=== PATIENT | female | born 1950 | race Caucasian/White ===

== ENCOUNTER → 2017-06-06 | Outpatient (CLI) | payer OTHER ==
[~2017-06-06] MED LIST: ACETAMINOPHEN325 M1 PO; ADVAIR 250-501 EACH INH; ATIVAN1 MG PO; CISPLATIN IV; CRESTOR5 MG PO; DEXAMETHASONE4 MG PO; FLONASE 0.05%50 MCG NASAL; HYDROCODONE-AC120 ML PO; OMEPRAZOLE 20 M20 M1 PO; OMEPRAZOLE 20 M20 MG PO; ONDANSETRON HCL4 M3 PO; SYNTHROID112 MCG PO; [UNRECOGNIZED DRUG - OTHER] IV
[2017-06-06 09:01] LABS: CREATININE 0.8 mg/dL (0.6-1.0)
== END ==
LOC: MRI 08:27
PROVIDERS: Internal Medicine Pulmonary Disease
DX: I67.82 Cerebral ischemia (principal); C34.90 Malignant neoplasm of unspecified part of unspecified bronchus or lung; J70.0 Acute pulmonary manifestations due to radiation; D3A.00 Benign carcinoid tumor of unspecified site; R41.3 Other amnesia

== ENCOUNTER → 2017-06-12 | Outpatient (CLI) | payer OTHER | LOC: PET 11:57 | DX: C34.90 Malignant neoplasm of unspecified part of unspecified bronchus or lung (principal); J70.0 Acute pulmonary manifestations due to radiation; D3A.00 Benign carcinoid tumor of unspecified site ==

== ENCOUNTER → 2018-10-21 | Outpatient (CLI) | payer OTHER | LOC: NUC 11:32 | DX: M85.89 Other specified disorders of bone density and structure, multiple sites (principal); M81.0 Age-related osteoporosis without current pathological fracture; Z78.0 Asymptomatic menopausal state ==

== ENCOUNTER 2019-01-19 14:57 | Inpatient (IN) | payer OTHER ==
[~2019-01-19] VITALS: Ht 167.6 cm; Wt 90.3 kg
--- NOTE | ~2019-01-19 | HC ---
[facility] [place] [address] CONSULTATION Name: RENNY WALKER Room #: 350-P [facility] IN ..#: [id number] Admission: 01/19/19 ������������������ Attend Phys: Kerwin Dunham MD Discharge: 01/20/19 ������������������ Date of : 50 Report #: [id number] THIS REPORT FOR: //name// CC: Kerwin Ross DATE OF SERVICE: 01/20/2019 HISTORY OF PRESENT ILLNESS: This is a 68-year-old female patient who was evaluated by me for leg weakness. The patient was discussed with nurse practitioner who admitted this patient yesterday. This patient has presented with falls. Her history is quite poor. She does indicate that she had a history of lung carcinoma. She said her legs are becoming weak. The duration is not clear. Sometimes she says that it is because of chemotherapy or radiation and it is going on for a long time. On other time she stays it is going on for a few days and she indicated that it may have become worse the last few days. She was noticed to be weak on the left side by Emergency Room, but to me she is weak on both sides and sometime looks more weak on the right side than the left side. She has fracture on the left side. REVIEW OF SYSTEMS: Indicate that this patient has a history of lung carcinoma with metastasis to the lymph nodes. She has a history of breast implant and hysterectomy. She has a history of hypothyroid. Her 14-point review of system was carried out and this was a relevant 14-point review of system. PAST MEDICAL HISTORY: Positive for lung cancer. FAMILY HISTORY: Negative for any neuropathy. SOCIAL HISTORY: She does drink alcohol and used to smoke. PHYSICAL EXAMINATION: Indicate she is alert. She is responsive. She is oriented, but looks like she forgets things other easily. I do not know what her baseline is. Cranial nerve examination 2-12 looks unremarkable. She is weak in both lower extremities; in fact, she appeared to be weaker in the right lower extremity than the left lower extremity to me. Her position sense looks intact. Reflexes are diminished and I could not elicit in the lower extremities. There is no meningeal sign. There is no carotid bruit in this patient. Blood pressure is 150/73, respirations 19, pulse 65, temperature is 98.2. MRI of the brain shows chronic changes, but no acute changes. 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 IMPRESSION AND PLAN: It is not clear what the patient's symptoms are coming from. 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 was not there and she tried to call him, but history is not clear in that regard. She thinks this may be going on for some time. If she is worse in the last few days, then the spinal cord lesions may be contributing to her symptom. In any case, that needs to be addressed. For that, we need a neurosurgical evaluation to see how much that is contributing to her symptom and further management of that. I asked the admitting physician to get her transferred to [facility] , that is where the patient wants to go and let her get evaluated by Neurosurgery first and then she may need further evaluation including EMG, which we do not have in this hospital. More than 50 minutes of time was spent taking care of this patient and majority of that time was spent counseling and coordinating the patient's care. ��������������������������������������������� ���������������������������������������� By: ��������������������������������������������� 1641 0110 Nawaf Rodriguez MD /nt
[2019-01-19 15:11] VITALS: BP 118/82
--- NOTE | 2019-01-19 16:00 | NUR ---
ASSISTED PT ONTO BEDPAN. PT TOLERATED OKAY.
[2019-01-19 16:33] LABS: HEMATOCRIT 37.9 % (37.0-47.0); MCH 33.4 pg (26.0-34.0); MCHC 34.4 g/dL (28.0-37.0); MCV 97.2 fL (80.0-100.0); PLATELET COUNT 191 thou/uL (150-400); RDW 13.5 % (10.5-14.5); WBC 7.9 thou/uL (4.0-11.0)
[2019-01-19 16:42] LABS: CALCIUM 9.2 mg/dL (8.5-10.1); CREATININE 0.9 mg/dL (0.6-1.0); POTASSIUM 3.7 mmol/L (3.5-5.1)
[2019-01-19 16:48] LABS: ALBUMIN 3.6 g/dL (3.4-5.0); TOTAL BILIRUBIN 0.5 mg/dL (<0.1-1.0)
[2019-01-19 16:57] LABS: ABSOLUTE NEUTROPHILS 6.2 thou/uL (1.4-8.2); PLATELET ESTIMATE NORMAL
[2019-01-19 17:01] LABS: URINE BILIRUBIN NEGATIVE (Negative); URINE BLOOD TRACE (Negative); URINE CLARITY CLEAR; URINE COLOR YELLOW; URINE GLUCOSE-RANDOM* NEGATIVE (Negative); URINE KETONES TRACE (Negative); URINE LEUKOCYTES-REFLEX NEGATIVE (Negative); URINE NITRITE-REFLEX NEGATIVE (Negative); URINE PROTEIN (DIPSTICK) NEGATIVE (Negative); URINE UROBILINOGEN 0.2 E.U./dl (0.2-1.0)
[2019-01-19 19:52] VITALS: BP 145/86
--- NOTE | 2019-01-19 19:57 | NUR ---
PROVIDER AT BEDSIDE CHECKING SPLINT.
[2019-01-19 20:45] VITALS: BP 147/62
[2019-01-20 05:15] VITALS: BP 151/76
--- NOTE | 2019-01-20 05:31 | NUR ---
NEW ADMIT FROM ER VIA EMS. OVER LAST TWO DAYS PT HAS FALLEN 3X IN HER HOME. FALL TODAY RESULTED IN BROKEN FOOT AND A BUMP ON THE REAR OF HER HEAD. CUTS AND SCRAPES TO LEFT KNEE AND LEFT HAND. HUGE BRUISE ON PT'S RIGHT BUTT CHEEK. PT IS LOOKING SOMEWHAT JAUNDICE. ASKED PT IF SHE TANS, SHE REPLIED NO. DURING ADMISSION PT STATES SHE IS A DAILY DRINKER. COULD THE FALLS BE RELATED TO ALCOHOL CONSUMPTION. PT IS A/OX4 BUT HAS SOME DIFFICULTY FINISHING STATEMENTS. PT IS SCHEDULED FOR A NEURO CONSULT AND POSSIBLY A MRI. AT THIS POINT KEEPING PT ON BED REST UNTIL PT CAN SEE HER. ALSO PT ABLE TO HELP ROLL HERSELF WHEN NEEDING TO USE THE BEDPAN.
[2019-01-20 07:25] VITALS: BP 148/78
--- NOTE | 2019-01-20 07:50 | EKG ---
[address] [employer] [place] [address] ELECTROCARDIOGRAM REPORT Name: RENNY WALKER Room #: 350-P ADM IN M.R.#: [id number] ������������������ Admission: 01/19/19 ������������������ Attend Phys: Kerwin Dunham MD Discharge: ������������������ Date of : 50 Report #: [id number] ����������������������������������������������������������������� [id number] THIS REPORT FOR: //name// [facility] ED Test Date: 2019-01-19 Test Time: 16:12:25 Pat Name: RENNY WALKER Department: Room: 350 Gender: F Ruling Machine Set Up Operator: : 1950 Requested By: Todd Triana Order Number: [id number] MD: Jem Saenz Measurements Intervals [place] Rate: 82 P: 77 CT: 147 QRS: 68 QRSD: 90 T: 62 QT: 398 QTc: 465 Interpretive Statements Sinus rhythm Probable left atrial enlargement Anteroseptal infarct, age indeterminate Compared to ECG 07/24/2013 08:49:11 Septal Q waves are more prominent Sinus bradycardia no longer present Electronically Signed On 01-20-2019 7:49:58 [employer] HOUSE ATTENDANT by Jem Saenz [email or web address] ��������������������������������������������� <ELECTRONICALLY SIGNED> ���������������������������������������� By: Jem Saenz MD, [facility] ��������������������������������������������� 01/20/19 0749 1612 1612 Jem Saenz MD, [facility] /EPI
[2019-01-20 07:51] LABS: CALCIUM 8.6 mg/dL (8.5-10.1); CREATININE 0.7 mg/dL (0.6-1.0); POTASSIUM 3.5 mmol/L (3.5-5.1)
[2019-01-20 10:56] LABS: FOLIC ACID 19.8 ng/mL (8.6-58.9); TSH 4.97 uIU/mL (0.358-3.740)
--- NOTE | 2019-01-20 16:08 | NUR ---
ASSSUMED CARE OF PATIENT AT 0715. AAOX3 VERY PLEASANT AND COOPERATIVE. SEEMS SOMEWHAT CONFUSED AT TIMES REORIENTS QUICKLY. GOOD APPETITE. ORTHO SAW HER AND REMOVED SPLINT - WALKING BOOT ORDERED. WENT TO MRI VIA CART. VOIDS PER BED ARIAS AND GOT UP TO COMMODE ONE TIME WITH PIVOT TRANSFER. C/O MILD HEADACHE WHICH WAS TREATED WITH TYLENOL WITH GOOD RELIEF. DR CURRY DISCUSSED RESULTS OF MRI WITH PATIENT AND RECOMMMENED TRANSFER TO FOR NEUROSURGERY. PATIENT HAVING DIFFICULTY REMEMBERING WHY THE NEED TO TRANSFER. RIGHT AC IV SALINE LOCKED. AT BEDSIDE. PATIENT MOVES WELL IN BED AND TRANSFERS WITH SBA USING PIVOT TRANSFER.
[2019-01-20 16:19] VITALS: BP 150/73
--- NOTE | 2019-01-20 16:29 | NUR ---
INITIAL ASSESSMENT: Received consult for discharge planning. AIDEE reviewed chart and spoke with nursing and attending physician. Pt was admitted from home following several falls at home. Pt with fx of fifth metatarsal bone of left foot. Pt with recent hx of left sided leg weakness. 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 Pt did complete radiation and chemotherapy treatment. Pt also with noted hx of daily ETOH consumption. AIDEE contacted by nursing regarding transfer to [facility] per neuro recommendation due to pt having spinal tumor. AIDEE met with pt at bedside. Introduced role of SW. Pt is alert/orientated. Pt able to answer questions appropriately, but had trouble following conversation. Pt reports she lives at home with her . Prior to admission, pt did not use any DME. No hx of HH services. Pt's PCP is Dr. Ross. AIDEE discussed recommendation for transfer to [facility] for neurosurgery services. Pt verbalized understanding and is agreeable with plan to transfer. AIDEE explained process for transfer and need for ambulance transportation from [facility] to [facility]. Pt agreeable. AIDEE offered to contact pt's spouse to provide update. Pt states that she will notify her family. AIDEE contacted [facility] transfer team and spoke with Bel environmental conservation officer. Provided demographic and clinical info. Provided attending physician's contact info. AIDEE faxed requested clinical info (face sheet, H&P, consults, progress notes, vital signs, labs, imaging reports) to [phone] for review. Received fax confirmation. AIDEE left voice message for [facility] radiology to request images to be uploaded to the [facility] to [facility] and also requested a disc to be sent with pt. Awaiting input from [facility] regarding pt's acceptance and bed availability. [facility] Ambulance form and EMTALA form placed on outside of pt's chart for completion when bed is assigned. Chart copy requested. AIDEE is available to assist as needed. [facility] Transfer Center-- [facility]--
--- NOTE | 2019-01-20 17:33 | NUR ---
LEGEND MAKER PROVIDED LEFT WALKING BOOT AND APPLIED TO LEFT LOWER EXTREMITY
--- NOTE | 2019-01-20 19:07 | NUR ---
TRANSFERED TO [facility] VIA BLS [facility]. REPORT CALLED TO DAVY AT . PATIENT AGREEABLE TO TRANSFER. AAOX3, VERY PLEASANT AND COOPERATIVE. SL LEFT ARM. NO COMPLAINTS. LEFT WALKING BOOT INTACT.
== END 2019-01-20 19:11 | disposition short-term general hospital (02) | DRG 563 ==
LOC: ER 14:57 → EROBS 18:52 → 3W 18:52
PROVIDERS: Nurse Practitioner; Nurse Practitioner Family; ADMIT Hospitalist
PROC: 2W3MX1Z Immobilization of Left Lower Extremity using Splint (ICD-10-PCS; principal; 2019-01-19)
DX: S92.352A Displaced fracture of fifth metatarsal bone, left foot, initial encounter for closed fracture (principal); R29.6 Repeated falls; E03.9 Hypothyroidism, unspecified; G62.9 Polyneuropathy, unspecified; F41.9 Anxiety disorder, unspecified; J06.9 Acute upper respiratory infection, unspecified; E78.5 Hyperlipidemia, unspecified; G62.0 Drug-induced polyneuropathy; J44.9 Chronic obstructive pulmonary disease, unspecified; W18.39XA Other fall on same level, initial encounter; K21.9 Gastro-esophageal reflux disease without esophagitis; M48.8X4 Other specified spondylopathies, thoracic region; R27.0 Ataxia, unspecified; Z90.710 Acquired absence of both cervix and uterus; Z98.82 Breast implant status; Z85.118 Personal history of other malignant neoplasm of bronchus and lung; Z91.041 Radiographic dye allergy status; Z87.891 Personal history of nicotine dependence; Z90.722 Acquired absence of ovaries, bilateral; Z79.899 Other long term (current) drug therapy; Z47.89 Encounter for other orthopedic aftercare; Y93.89 Activity, other specified; Y92.89 Other specified places as the place of occurrence of the external cause; Y99.8 Other external cause status; Z92.21 Personal history of antineoplastic chemotherapy
CPT/HCPCS: 10879